=== PATIENT | male | born 1990 | race Caucasian/White ===

== ENCOUNTER → 2021-09-03 | Emergency (ER) | payer OTHER ==
[~2021-09-03] VITALS: Ht 170.2 cm; Wt 70.3 kg
[~2021-09-03] MED LIST: BUTALB-ACETAMI1 EACH PO; PROVENTIL HFA6.7 GM IH
== END | disposition home or self-care (01) ==
LOC: ER 15:11
DX: G44.009 Cluster headache syndrome, unspecified, not intractable (principal); J45.998 Other asthma

== ENCOUNTER → 2024-12-19 | Emergency (ER) | payer OTHER ==
[~2024-12-19] VITALS: Ht 170.2 cm; Wt 68.0 kg
[~2024-12-19] MED LIST changes: +ELVITEG/COB/EMTRI/TENOFO DISOP 1 UDTAB TABLET PO ONE
== END | disposition home or self-care (01) ==
LOC: ER 12:24
DX: Z20.6 Contact with and (suspected) exposure to human immunodeficiency virus [HIV] (principal)

== ENCOUNTER 2025-02-26 22:29 | Emergency (ER) | payer OTHER ==
[~2025-02-26] VITALS: Ht 170.2 cm; Wt 70.3 kg
[~2025-02-26 22:29] MED LIST changes: -ELVITEG/COB/EMTRI/TENOFO DISOP 1 UDTAB TABLET PO ONE
[2025-02-26] MEDS ORDERED: KETOROLAC TROMETHAMINE 60 MG VIAL IM ONE ×2 (22:50→23:00)
== END 2025-02-27 00:20 | disposition home or self-care (01) ==
LOC: ER 22:30
DX: S29.011A Strain of muscle and tendon of front wall of thorax, initial encounter (principal)
CPT/HCPCS: 71046; 71110; 72070; 96372; 99283; J1885